=== PATIENT | female | born 1960 | race Caucasian/White ===

== ENCOUNTER 2017-01-27 20:57 | Emergency (ER) | payer OTHER ==
[2017-01-27 21:38] VITALS: BP 153/99
--- OUTSIDE RECORDS SUMMARY | 2017-01-27 22:10 | XMS REPORT | Continuity of Care Document ---
:1960 Author Organization [facility] ([facility]) Address [address] [place] [address] Phone [phone] Care Team Providers Name Role Phone Corinne Kiki Primary Care Provider [phone] Source Comments This disclosure is being made pursuant to the Care Everywhere program, applicable federal and state laws, and may not contain all informaitonavailable regarding this patient.[facility] ([facility]) Active Allergies and Adverse Reactions Allergen Noted Date Severity Reactions Comments Sulfa (Sulfonamide Antibiotics) 03/31/2009 OTHER mouth swelling Current Medications Prescription Sig. Disp. Refills Start End Date Status Date acetaminophen take 500 mg by Active (TYLENOL) 500 mg mouth daily as tablet needed for Pain. MULTIVITAMINS take 1 Tab by mouth Active (MULTIVITAMIN PO) daily. BD INSULIN For Carcinoid 300 Syringe 4 Active SYRINGE ULT-FINE syndrome 4 II 0.3 mL 31 g x Indications: 02/27" CARCINOID SYNDROME cloNIDine 0.1 mg Take 0.5 Tabs by 45 Tab 3 Active tablet mouth 2 times 4 daily. Indications: HYPERTENSION octreotide inject 5 mL 3 Syringe 4 Active (SANDOSTATIN LAR intramuscularly 4 DEPOT) 30 mg every 4 weeks. injection Indications: CARCINOID SYNDROME levothyroxine 50 Take 1 tablet (50 90 tablet 4 Active mcg tablet mcg total) by mouth 6 daily. zolpiDEM 5 mg Take by mouth at Active tablet bedtime as needed. liothyronine 5 Take 1 tablet (5 180 tablet 4 Active mcg tablet mcg total) by mouth 6 2 times daily. SUPPLY insulin Inject 100 Syringe 11 Active syringe w/ needle subcutaneously 3 6 U-100 1 mL 31 g x times daily. 5/16" propranolol 10 mg Take 1 tablet (10 90 tablet 4 Active tablet mg total) by mouth 6 3 times daily. octreotide 1000 Inject 0.4 mL (400 25 mL 11 Active mcg/mL injection mcg total) 7 subcutaneously every 12 hours. pancrelipase Take 1-2 capsules 360 capsule 11 Active (CREON) by mouth 3 times 7 12,000-38,000 daily. -60,000 unit EC capsule diazoxide Take 1 mL (50 mg 30 mL 2 Active (PROGLYCEM) 50 total) by mouth 3 7 mg/mL suspension times daily. omeprazole Take 1 capsule (40 90 capsule 4 Active (PRILOSEC) 40 mg mg total) by mouth 7 enteric coated daily. capsule omeprazole Take 1 capsule (40 90 capsule 4 01/16/20 Discontinued (PRILOSEC) 40 mg mg total) by mouth 6 17 enteric coated daily. capsule fexofenadine 180 Take 180 mg by 01/04/20 Discontinued mg tablet mouth daily. 17 Active Problems Problem Noted Date Neuroendocrine tumor of pancreas 11/29/2013 Neuroendocrine cancer 11/28/2012 Macular drusen 09/19/2012 Hypothyroid 07/23/2012 Pancreatic mass 03/31/2009 Overview: calcified mass seen on CT 03/30/2009 with small attenuated lesions in the liver. HTN 03/31/2009 Acne on doxycycline 40 mg daily. 03/31/2009 Asthma 03/31/2009 Overview: Stable over last 6 month she did not uses inhaler. GERD (gastroesophageal reflux disease) 03/31/2009 Overview: EGD on 03/19/09 no ulcers. Most Recent Encounters Date Type Specialty Providers Description 01/17/2017 Pharmacy Visit 01/15/2017 Refill Med Hematology and Bess, Dx: Gastritis Oncology MD Iván 01/15/2017 Pharmacy Visit 01/15/2017 Telephone Pilar Crabtree Chief Comp: Devorah Medication Adherence 01/15/2017 Telephone [facility] Chief Comp: Orders (to arrange test locally) 01/12/2017 Office Visit Pathology Bess, Chief Comp: Patient MD Iván Reported Reason For Lab Services, Visit [facility] 01/12/2017 Telephone Hematology and John Chief Comp: Results Oncology Peggy A 01/11/2017 Telephone Med Hematology and Sabra Spence Chief Comp: Discuss Oncology Test Results 01/08/2017 Telephone [facility] Chief Comp: Lab Results 01/05/2017 Pharmacy Visit 01/04/2017 Pharmacy Visit 01/03/2017 Office Visit Sr Oncology Pedro Song, Dx: Neuroendocrine cancer (Primary Dx) 01/03/2017 Office Visit Med Hematology and Bess, Dx: Neuroendocrine Oncology MD Iván tumor of pancreas (Primary Dx) 01/03/2017 Pharmacy Visit 12/27/2016 Office Visit Med Hematology and Bess, Chief Comp: Patient Oncology MD Iván Reported Reason For Visit 12/27/2016 Office Visit Srg Oncology Pedro Song, Chief Comp: Patient MD Reported Reason For Visit 12/27/2016 Office Visit Med Hematology and Pedro Song, Dx: Neuroendocrine Oncology tumor of pancreas 12/27/2016 [facility] Radiology Iván Mohamud Dx: Pancreatic mass Burak Park MD 12/27/2016 Office Visit Med Rheumatology Default, Other Dx: Trochanteric Billg - Defo bursitis of both hips Juani Mccollum, (Primary Dx) Luna Friend PA-C 12/27/2016 Pharmacy Visit 12/22/2016 Pharmacy Visit 12/21/2016 Refill Nikole Taylor Dx: Pancreatic H, RPH insufficiency (Primary Dx) 12/21/2016 Pharmacy Visit 12/20/2016 Pharmacy Visit 12/18/2016 Refill Med Endocrinology Tha Mabry, Dx: Pancreatic MD insufficiency 12/18/2016 Refill Med Hematology and Bess, Dx: Carcinoid tumor Oncology MD Iván 12/18/2016 Pharmacy Visit 12/12/2016 Telephone Pilar Crabtree Chief Comp: M Medication Adherence 11/21/2016 Pharmacy Visit 11/20/2016 Pharmacy Visit 11/16/2016 Pharmacy Visit 11/13/2016 Telephone Pilar Crabtree Chief Comp: M Medication Adherence Immunizations Name Dates Previously Given Next Due Hib, PRP-T 04/01/2009 Influenza 07/28/2009 Meningococcal Conjugate, MCV4P (Menactra) 04/01/2009 Pneumococcal Polysaccharide, PPSV23 (Pneumovax 23) 04/01/2009 Social History Tobacco Use Types Packs/Day Years Used Date Current Every Day Smoker Cigarettes 0.25 25 Smokeless Tobacco: Never Used Tobacco Cessation:Ready to Quit: No; Counseling Given: Yes Comments:Chantix start date 04/27/15 Alcohol Use Drinks/Week oz/Week Comments Yes 3 Cans of beer 1.5 Last Filed Vital Signs Vital Sign Reading Time Taken Blood Pressure 128/81 01/03/2017 1:46 PM CDT Pulse 53 01/03/2017 1:46 PM CDT Temperature 37 C (98.6 F) 01/03/2017 1:46 PM CDT Respiratory Rate 18 01/03/2017 1:46 PM CDT Height 1.699 m (5' 6.89") 01/03/2017 1:46 PM CDT Weight 69.5 kg (153 lb 3.5 oz) 01/03/2017 1:46 PM CDT Body Mass Index 24.08 01/03/2017 1:46 PM CDT Oxygen Saturation 100% 01/03/2017 1:46 PM CDT Plan of Care Health Maintenance Due Date Last Done Comments HCV Screening 1960 Hepatitis B Vaccine (1 of 3 - Primary Series) 1960 Tdap Vaccine 1972 Lipid Disorder Screening 1979 MMR Vaccine 1979 Td Vaccine 1979 Cervical Cancer Screening 1991 Mammogram 2001 Pneumococcal Vaccine (2 of 3 - PCV13) 04/01/2010 04/01/2009 Colonoscopy 2011 Influenza Vaccine: Seasonal Completed 07/28/2009 Results from Last 3 Months SOMATOSTATIN TYPE 2 (IHC) ORDER (01/12/2017 12:33 PM) Component Value Range Somatostatin Type 2 Receptor (IHC) Order Arrived Specimen Tissue SURGICAL PATHOLOGY EXAM (01/12/2017 12:32 PM) Component Value Range Case Report Surgical Pathology Case: [id number] Authorizing Provider:Iván Kellogg MDCollected: 01/12/2017 12:32 PM [facility] 01/12/2017 12:32 PM Pathologist: Bayron Clark MD Specimen:Archive material, [id number] Diagnosis SSTR2A immunostain is POSITIVE (3+, 100%). I have personally reviewed this case and edited the report as necessary. Clinical Information [id number] Gross Description Re-accessioned case.Original specimen ID: [id number] Microscopic Description Microscopic examination performed. Performed by: Bayron Clark M.D. I have personally reviewed this case and edited the report as necessary. Bayron Clark MD IHC Section IHC: All controls show appropriate reactivity. This test was developed and its performance characteristics determined by the immunopathology Laboratory at the [facility]. It has not been cleared or approved by the US Food and Drug Administration.FDA does not require this test to go through premarket FDA review.This test is used for clinical purposes.It should not be regarded as investigational or fo r research. This laboratory is certified under the Clinical Laboratory Improvement Amendments (CLIA) as qualified to perform high complexity clinical laboratory testing. SSTR2A immunohistochemistry is performed on formalin-fixed, paraffin- embedded tissue sections using the rabbit monoclonal antibody UMB-1 and a polymer-based detection system. Cases are assessed for extent (%) and intensity (3+, 2+, 1+, 0) of membrane staining and interpreted as follows, according to the below-cited reference: POSITIVE: >10% of tumor cells stain INDETERMINATE: 1-10% of tumor cells stain with moderate or strong intensity PROBABLY NEGATIVE: 1-10% of tumor cells stain with weak intensity NEGATIVE: <1% of tumor cells stain Reference: Markus Fairchild, et al. Somatostatin receptor subtype 2A immunohistochemistry using a new monoclonal antibody selects tumors suitable for in vivo somatostatin receptor targeting. Am J Surg Pathol. 2012;36(2):242-52. SSTR2A interpretation Positive Specimen Tissue - Archive material GLUCAGON (01/03/2017 2:44 PM) Component Value Range Glucagon 54Comment: <=80 pg/mL ADDITIONAL INFORMATION Proven glucagonomas have analyte concentrations 10 fold or more above the reference range. This test was developed and its performance characteristics determined by [facility] in a manner consistent with CLIA requirements. This test has not been cleared or approved by the U.S. Food and Drug Administration. Specimen Blood Narrative Test Performed by: [address] [address] PROINSULIN (01/03/2017 2:44 PM) Component Value Range Proinsulin 41(H)Comment: 3-20 pmol/L ADDITIONAL INFORMATION This test was developed and its performance characteristics determined by [facility] in a manner consistent with CLIA requirements. This test has not been cleared or approved by the U.S. Food and Drug Administration. Specimen Blood Narrative Test Performed by: [facility] - [address] [address] C-PEPTIDE (01/03/2017 2:44 PM) Component Value Range C-Peptide 3.1 1.1-4.4 ng/mL Specimen Blood DIFFERENTIAL (12/27/2016 2:26 PM) Component Value Range % Neutrophils-Auto Diff 58.6 % Neutrophils-Auto Diff 5550 1381-5978 /MM3 % Lymphocytes-Auto Diff 30.3 % Lymphocytes-Auto Diff 2860 875-3300 /MM3 % Monocytes-Auto Diff 6.5 % Monocytes-Auto Diff 610 130-860 /MM3 % Eosinophils-Auto Diff 3.1 % Eosinophils-Auto Diff 290 40-390 /MM3 % Basophils 1.3 % Basophils-Auto Diff 120 10-136 /MM3 % Immature Granulocytes-Auto Diff 0.2 % Immature Granulocytes-Auto Diff 20 /MM3 Specimen Blood LIVER PANEL (12/27/2016 2:26 PM) Component Value Range Bilirubin Total 0.5 <=1.2 mg/dL AST 23Comment: 0-32 U/L Adult reference ranges updated on 09/09/13 at 830am ALT 18Comment: 0-33 U/L The upper limit of normal for alanine aminotransferase (ALT) reference ranges for adults is controversial with some authorities recommending limit as low as 30 U/L for males and 19 U/L for females. Th ere is increased incidence of subclinical liver disease (e.g., early steatohepatitis) in patients with ALT values in the range of 31-41 U/L for males and 20-33 U/L for females. ALT values should alway s be interpreted in conjunction with clinical history, physical examination findings, and, if applicable, data from other diagnostic tests. ALP 104 35-104 U/L GGT 51(H) 5-36 U/L Albumin 4.3 3.4-4.8 g/dL Total Protein 7.3 6.0-8.0 g/dL Specimen Blood CBC (COMPLETE BLOOD COUNT) (12/27/2016 2:26 PM) Component Value Range WBC Count 9.5 3.7-10.5 K/MM3 RBC Count 4.12 4.00-5.20 M/MM3 Hemoglobin 12.3 11.9-15.5 g/dL Hematocrit 37 35-47 % MCV (Mean Corpuscular Volume) 90 82-99 FL MCH (Mean Corpuscular Hemoglobin) 30 25-35 PG MCHC (Mean Corpuscular Hemoglobin Concentration) 33 32-36 % Platelet Count 307 150-400 K/MM3 MPV (Mean Platelet Volume) 13.3(H) 9.4-12.3 FL RBC Dist Width-STD 44.6 36.4-46.3 FL RBC Distrib Width 13.6 9.0-14.5 % Nucleated RBC 0 /100 WBC Specimen Blood BASIC METABOLIC PANEL (W/ CALCIUM TOTAL) (12/27/2016 2:26 PM) Component Value Range Sodium 140 135-145 mEq/L Potassium 4.7 3.5-5.0 mEq/L Chloride 101 95-107 mEq/L CO2 26 22-29 mEq/L Anion Gap 13 8-18 mEq/L BUN 13 10-20 mg/dL Creatinine 0.7Comment: 0.5-1.0 mg/dL Creatinine switched to enzymatic method on 02/21/2011.GFR equation switched to IDMS-traceable MDRD equation on 02/21/2011. Calculated GFR values are not valid in clinical settings where serum creatinine is changing. Glucose 87Comment: 65-99 mg/dL The Expert Committee on the Diagnosis and Classification of Diabetes has defined impaired fasting glucose as greater than or equal to 100 mg/dL but less than 126 mg/dL.(Diabetes Care 28 (Suppl 1)S41,2005) Calcium 9.5 8.5-10.5 mg/dL Calculated GFR 87 >60 mL/min/1.73 m2 Specimen Blood PANCREATIC POLYPEPTIDE (12/27/2016 2:26 PM) Component Value Range Pancreatic Polypeptide <30Comment: 0-435 pg/mL INTERPRETIVE INFORMATION:Pancreatic Polypeptide Test developed and characteristics determined by [facility]. See Compliance Statement D: [facility] Performed by [facility], [address] [place] [id number] www.[email or web address] MD, Lab. Director Specimen Blood Narrative Specimen Source: Specimen Start Date: CALCITONIN (12/27/2016 2:26 PM) Component Value Range Calcitonin <2.0Comment: 0.0-5.1 pg/mL INTERPRETIVE INFORMATION: Calcitonin Calcitonin levels greater than 100 pg/mL may occur in the following conditions: medullary thyroid carcinomas (MTC), leukemias, and myeloproliferative disorders. Provocative testing (calcium) is suggested in patients with MTC if the calcitonin is not clearly diagnostic. The Siemens Immulite 2000 method is used.Results obtained with different assay methods or kits cannot be used interchangeably. Calcitonin is useful in monitoring medullary thyroid carcinoma. The calcitonin assay value, regardless of level, should not be interpreted as absolute evidence of the presence or absence of malignant disease. Performed by [facility], [address] [facility] [place] [address] www.[email or web address], Yosef Rodgers MD, Lab. Director Specimen Blood Narrative Specimen Source: Specimen Start Date: SUBSTANCE P (12/27/2016 2:26 PM) Component Value Range Substance P 108Comment: 40-270 pg/mL This test was developed and its performance characteristics determined by [facility]. It has not been cleared or approved by the US Food and Drug Administration. The FDA has determined that such clearance or approval is not necessary. Specimen Blood PANCREASTATIN (12/27/2016 2:26 PM) Component Value Range Pancreastatin 35Comment: 10-135 pg/mL This test was developed and its performance characteristics determined by [facility]. It has not been cleared or approved by the US Food and Drug Administration. The FDA has determined that such clearance or approval is not necessary. Specimen Blood SEROTONIN, BLOOD (12/27/2016 2:26 PM) Component Value Range Serotonin, Blood 190Comment: 50-200 ng/mL TEST INFORMATION:Serotonin Whole Blood Test developed and characteristics determined by [facility]. See Compliance Statement B: [facility]/ Performed by [facility], [address] [place] [address] www.[email or web address], Yosef Rodgers MD, Lab. Director Specimen Blood Narrative Specimen Source: Specimen Start Date: CHROMOGRANIN A (12/27/2016 2:26 PM) Component Value Range Chromogranin A 61Comment: 0-95 ng/mL INTERPRETIVE INFORMATION:Chromogranin A This test is performed using the Power[employer] [id number]-BL kit. Results obtained with different methods or kits cannot be used interchangeably. See Compliance Statement D: [facility]/ Performed by [facility], [address] [place] [address] www.[email or web address], Yosef Rodgers MD, Lab. Director Specimen Blood Narrative Specimen Source: Specimen Start Date: GASTRIN, SERUM (12/27/2016 2:26 PM) Component Value Range Gastrin, Serum 78Comment: 0-100 pg/mL Performed by [facility], [address] [place] [address] www.[email or web address], Yosef Rodgers MD, Lab. Director Specimen Blood Narrative Specimen Source: Specimen Start Date: HEMOGLOBIN A1C (12/27/2016 2:26 PM) Component Value Range Hemoglobin A1c 5.7Comment: 4.8-6.0 % Glycemic Control Guidelines: Non-diabetic <6% Goal <7% Therapeutic Action >8% Estimated Average Glucose 117Comment: mg/dL The estimated average glucose (eAG) calculated from the HbA1c changed on 03/06.See Laboratory Bulletins in the Department of Pathology Laboratory Services Handbook for a full discussion.Not e that the new calculated glucose will now be lower.The A1c result is unchanged. Specimen Supernatant TRIIODOTHYRONINE - FREE (12/27/2016 2:26 PM) Component Value Range T3, Free 2.83 2.57-4.43 pg/mL Specimen Blood THYROXINE - FREE (12/27/2016 2:26 PM) Component Value Range Free T4 (Thyroxine) 1.03 0.80-1.80 ng/dL Specimen Blood THYROID STIMULATING HORMONE (12/27/2016 2:26 PM) Component Value Range TSH 0.58 0.27-4.20 IU/mL Specimen Blood CBC WITH DIFFERENTIAL (12/27/2016 2:26 PM) Specimen Blood Narrative The following orders were created for panel order CBC WITH DIFFERENTIAL. Procedure Abnormality Status --------- ------ CBC (COMPLETE BLOOD COUNT)[[id number]] DIFFERENTIAL[[id number]] Final result Please view results for these tests on the individual orders. CHLORIDE (12/27/2016 2:26 PM) Component Value Range Chloride 101 95-107 mEq/L Specimen Blood BLOOD UREA NITROGEN (12/27/2016 2:26 PM) Component Value Range BUN 13 10-20 mg/dL Specimen Blood ASPARTATE AMINOTRANSFERASE (12/27/2016 2:26 PM) Component Value Range AST 23Comment: 0-32 U/L Adult reference ranges updated on 09/09/13 at 830am Adult reference ranges updated on 09/09/13 at 830am Specimen Blood ALANINE AMINOTRANSFERASE (12/27/2016 2:26 PM) Component Value Range ALT 18Comment: 0-33 U/L The upper limit of normal for alanine aminotransferase (ALT) reference ranges for adults is controversial with some authorities recommending limit as low as 30 U/L for males and 19 U/L for females. Th ere is increased incidence of subclinical liver disease (e.g., early steatohepatitis) in patients with ALT values in the range of 31-41 U/L for males and 20-33 U/L for females. ALT values should alway s be interpreted in conjunction with clinical history, physical examination findings, and, if applicable, data from other diagnostic tests. Specimen Blood SODIUM (12/27/2016 2:26 PM) Component Value Range Sodium 140 135-145 mEq/L Specimen Blood TOTAL PROTEIN (12/27/2016 2:26 PM) Component Value Range Total Protein 7.3 6.0-8.0 g/dL Specimen Blood POTASSIUM (12/27/2016 2:26 PM) Component Value Range Potassium 4.7 3.5-5.0 mEq/L Specimen Blood ALKALINE PHOSPHATASE (12/27/2016 2:26 PM) Component Value Range ALP 104 35-104 U/L Specimen Blood GLUCOSE (12/27/2016 2:26 PM) Component Value Range Glucose 87Comment: 65-99 mg/dL The Expert Committee on the Diagnosis and Classification of Diabetes has defined impaired fasting glucose as greater than or equal to 100 mg/dL but less than 126 mg/dL.(Diabetes Care 28 (Suppl 1)S41,2005) The Expert Committee on the Diagnosis and Classification of Diabetes has defined impaired fasting glucose as greater than or equal to 100 mg/dL but less than 126 mg/dL.(Diabetes Care 28 (Suppl 1)S41,2005) Specimen Blood CREATININE (12/27/2016 2:26 PM) Component Value Range Creatinine 0.7Comment: 0.5-1.0 mg/dL Creatinine switched to enzymatic method on 02/21/2011.GFR equation switched to IDMS-traceable MDRD equation on 02/21/2011. Calculated GFR values are not valid in clinical settings where serum creatinine is changing. Calculated GFR 87 >60 mL/min/1.73 m2 Specimen Blood CO2 (12/27/2016 2:26 PM) Component Value Range CO2 26 22-29 mEq/L Anion Gap 13 8-18 mEq/L Specimen Blood CALCIUM (12/27/2016 2:26 PM) Component Value Range Calcium 9.5 8.5-10.5 mg/dL Specimen Blood BILIRUBIN, TOTAL (12/27/2016 2:26 PM) Component Value Range Bilirubin Total 0.5 <=1.2 mg/dL Specimen Blood ALBUMIN (12/27/2016 2:26 PM) Component Value Range Albumin 4.3 3.4-4.8 g/dL Specimen Blood CT ABDOMEN& PELVIS W CONTRAST ([id number]) (12/27/2016 1:55 PM) Impressions Impression: 1. Multiple enhancing hepaticare grossly stable compared to prior CT. In addition, two (2 ) new subcentimeter lesions compatible with metastatic neuroendocrine tumor. 2. Stable ablation site of segment 8. 3. Stable appearance of nodule at splenic resection site. 4. 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 5. No retroperitoneal or pelvic lymphadenopathy. No periportal lymphadenopathy. Normal appearance of the greater omentum and peritoneum. Narrative Procedure: CT ABDOMEN & PELVIS W CONTRAST ([id number]) Clinical Indication: History of pancreatic neuroendocrine tumor. CT to evaluate for progression of tumor. Technique: CT exam of the abdomen and pelvis is performed following the uneventful administration of 123 cc Isovue-370 IV contrast. Biphasic pancreatic protocol is performed. Comparison: CT abdomen and pelvis dated 06/28/2016 Findings: Lower chest: The visualized lung bases are clear. Liver: Stable appearance of the ablation defect in segment 8. Multiple right hepatic lesions are seen including enhancing nodular lesion in segment 7 previously measuring 8 mm now measures approximately 7 mm (3-10). Additional new segment 7 lesion measures 5 mm (3-10). A new 3 mm lesion is noted of segment 2/3 (3-5). Persistent visualized segment 2/3 lesion measuring 9 mm now measures 11 mm (3-1) Bile ducts: Not dilated. Gallbladder: Postcholecystectomy Pancreas: Changes of distal pancreatectomy. Spleen: Nodular lesion is again seen at the splenic surgical site measuring 8 mm (4-37) Adrenal glands: Normal Kidneys: Normal Ureters: Normal Bladder: Normal Aorta: Atherosclerosis of the abdominal aorta without aneurysm Retroperitoneum: No lymphadenopathy. Peritoneum: No ascites. Mesentery: Normal Stomach: Not distended. Small bowel: Not distended. Colon: Not distended. Appendix: Surgically absent. Extraperitoneal pelvis: No lymphadenopathy. Uterus: Absent. Ovaries:No adnexal mass lesions. Abdominal wall: Normal Bones: No acute fracture or destructive bone lesion. Again visualized is sclerotic lesion of the left iliac, stable since 2012. Procedure Note Michele, Incoming Imaging Results - [facility] Dec 28, 2016 4:38 PM CDT Procedure: CT ABDOMEN & PELVIS W CONTRAST ([id number]) Clinical Indication: History of pancreatic neuroendocrine tumor. CT to evaluate for progression of tumor. Technique: CT exam of the abdomen and pelvis is performed following the uneventful administration of 123 cc Isovue-370 IV contrast. Biphasic pancreatic protocol is performed. Comparison: CT abdomen and pelvis dated 06/28/2016 Findings: Lower chest: The visualized lung bases are clear. Liver: Stable appearance of the ablation defect in segment 8. Multiple right hepatic lesions are seen including enhancing nodular lesion in segment 7 previously measuring 8 mm now measures approximately 7 mm (3-10). Additional new segment 7 lesion measures 5 mm (3-10). A new 3 mm lesion is noted of segment 2/3 (3-5). Persistent visualized segment 2/3 lesion measuring 9 mm now measures 11 mm (3-1) Bile ducts: Not dilated. Gallbladder: Postcholecystectomy Pancreas: Changes of distal pancreatectomy. Spleen: Nodular lesion is again seen at the splenic surgical site measuring 8 mm (4-37) Adrenal glands: Normal Kidneys: Normal Ureters: Normal Bladder: Normal Aorta: Atherosclerosis of the abdominal aorta without aneurysm Retroperitoneum: No lymphadenopathy. Peritoneum: No ascites. Mesentery: Normal Stomach: Not distended. Small bowel: Not distended. Colon: Not distended. Appendix: Surgically absent. Extraperitoneal pelvis: No lymphadenopathy. Uterus: Absent. Ovaries: No adnexal mass lesions. Abdominal wall: Normal Bones: No acute fracture or destructive bone lesion. Again visualized is sclerotic lesion of the left iliac, stable since 2012. IMPRESSION Impression: 1. Multiple enhancing hepatic are grossly stable compared to prior CT. In addition, two (2 ) new subcentimeter lesions compatible with metastatic neuroendocrine tumor. 2. Stable ablation site of segment 8. 3. Stable appearance of nodule at splenic resection site. 4. 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 5. No retroperitoneal or pelvic lymphadenopathy. No periportal lymphadenopathy. Normal appearance of the greater omentum and peritoneum. CREATININE, POINT OF CARE (12/27/2016 1:14 PM) Component Value Range POC CREATININE 0.8 0.5-1.0 mg/dL POC CALCULATED GFR >60 60 mL/min/1.73 m2 Specimen Blood
[2017-01-27] MEDS ORDERED: DIPHTH,PERTUSS(ACELL),TET VAC 0.5 ML VIAL IM ONE ×2 (22:21→22:27)
[2017-01-27] MEDS ORDERED: AMOX TR/POTASSIUM CLAVULANATE 875 MG TABLET PO ONE (22:22)
[2017-01-27] MEDS ORDERED: AMOX TR/POTASSIUM CLAVULANATE 875 MG TABLET ONE (22:26)
--- NOTE | 2017-01-27 22:30 | ERNOTE ---
Medical Problem HPI - Narrative Date of Service: 01/27/17 - General Chief Complaint: Foreign Body Time Seen by Provider: 01/27/17 22:04 Source: patient Exam Limitations: no limitations - Immun/Allergies/Home Medications Immunizations: IMMUNIZATION HX Immunizations Up to Date Yes History of Influenza Vaccine Yes Hx Pneumococcal Vaccination No Allergies/Adverse Reactions: Allergies Sulfa (Sulfonamide Antibiotics) Allergy (Verified 01/27/17 21:38) Home Medications: HOME MEDICATIONS Amox Tr/Potassium Clavulanate [Augmentin 875-125 Tablet] 1 each PO BID #10 tablet 01/27/17 [Last Taken Unknown] - History of Present History Narrative: Last Sunday a thorn punctured the skin of her right arm. Yesterday she noted the onset of pain at the site of the puncture. Made attempts to dig out the thorn which which she believes is still in the skin. No redness or pus noted at the puncture site. Severity: mild Modifying Factors - (Worsens): Present: other - nothing Review of Systems - Review of Systems Constitutional: Present: no symptoms reported EYE: Present: no symptoms reported ENT: Present: no symptoms reported Respiratory: Present: no symptoms reported Cardiology: Present: no symptoms reported Gastrointestinal/Abdominal: Present: no symptoms reported Genitourinary: Present: no symptoms reported Musculoskeletal: Present: See HPI Skin: Present: no symptoms reported Neurological: Present: no symptoms reported Endocrine: Present: no symptoms reported Hematologic/Lymphatic: Present: no symptoms reported Psych: Present: no symptoms reported - Patient's Past Medical History Patient History - Medical: GERD Patient History - Cardiac/Respiratory: Hypertension Patient History - Surgical Procedures: Appendectomy, Cholecystectomy, Hysterectomy, Tubal Ligation - Family History Mother Family History - Medical: Family History - Cardiac/Respiratory: Hypertension Family History - Cancer: Lung Father Family History - Medical: - Social History Living Situations: home Psych History: Hx of Anxiety Smoking Status: Current every day smoker Alcohol Use: occasionally Drug Use: none - Immunizations Immunizations Up to Date: Yes Hx Pneumococcal Vaccination: No History of Influenza Vaccine: Yes Physical Exam - Physical Exam General Appearance: Present: no apparent distress Eye Exam: Normal inspection: bilateral, PERRL: bilateral Ears, Nose, Throat: Present: normal ENT inspection Neck: Present: normal inspection Respiratory: Present: no respiratory distress Cardiovascular/Chest: Present: regular rate, rhythm Gastrointestinal/Abdominal: Present: nondistended Back Exam: Present: normal inspection Extremity Exam: Present: other - Right arm- minimal induration at the site of the puncture. No significant erythema paresent. Minimal tenderness. No pain with movement of the arm. Neurological Exam: Present: alert, oriented, director of social services II-XII nml as tested Skin Exam: Present: normal color ED Progress - Vital Signs Patient's Vital Signs:: I have reviewed the patient's vital signs. Vital Signs: Vital Signs 01/27/17 21:35 Temperature 37.5 C Pulse Rate 74 Respiratory 18 Rate Blood Pressure 153/99 O2 Sat by Pulse 100 Oximetry - Progress/Reassessment Chief Complaint: Foreign Body Progress:: Unchanged Departure - Departure Clinical Impression: Puncture wound Disposition: Home self-care Condition: Good Instructions: Puncture Wound, [id number] Print Language: Hebrew Additional Instructions: Follow up with your doctor in 1- 2 weeks as needed. You can always return to the ED as needed. Referrals: Kiki Sun FNP [Primary Care Provider] - Prescriptions: Amox Tr/Potassium Clavulanate [Augmentin 875-125 Tablet] 1 each PO BID #10 tablet
== END 2017-01-27 22:49 | disposition home or self-care (01) ==
LOC: ER 20:57
DX: S41.141A Puncture wound with foreign body of right upper arm, initial encounter (principal); W45.8XXA Other foreign body or object entering through skin, initial encounter; F17.210 Nicotine dependence, cigarettes, uncomplicated; Z23 Encounter for immunization